=== PATIENT | male | born 2005 | race Caucasian/White ===

== ENCOUNTER 2024-03-22 22:30 | Emergency (ER) | payer BC, SELFPAY ==
[2024-03-22 22:37] VITALS: BP 138/76; BMI 25.1
--- NOTE | 2024-03-22 22:57 | ED.GENMED ---
History of Present Illness
<JANINE Beltran - Last Filed: 03/23/24 00:56>
General
Chief Complaint: Skin Problem
Source: patient and family (mother )
Exam Limitations: none
Time Seen by Provider: 03/22/24 22:56
Nursing documentation reviewed up to this point in time: agreed with
History of Present Illness
History of Present Illness:
19 year old male presents for evaluation of right wrist abscess. Pt reports that he developed a similar abscess on his left shoulder several weeks due to prolonged wrapping of the area following a tattoo. He notes that this abscess was incised and
drained at [facility] on 03/19. Since that time, pt endorses development of a similar painful abscess on his right wrist since 03/19 that has been progressively enlarging. No trauma, bites, stings, or environmental exposures of the area reported. Pt
was seen by his PCP at [facility] on 03/19 where a wound culture of pt's left shoulder was obtained; results pending per pt's mother. Pt currently on Bactrim from his 03/19 incision and drainage. He endorses washing right wrist area with soap and
water, but has not taken any pain medications at home. He denies discharge and bleeding from right wrist abscess, denies N/V, fever, chills, fatigue, joint/muscle pain, decreased ROM, abdominal pain, and urinary symptoms.
Past History
<JANINE Beltran - Last Filed: 03/23/24 00:56>
Past History
ED Past Medical History: Asthma
Review of Systems
<JANINE Beltran - Last Filed: 03/23/24 00:56>
Review of Systems
Allergies reviewed?: Yes
Constitutional: Reports no symptoms
EENT: Reports no symptoms
Respiratory: Reports no symptoms
Cardiac: Reports no symptoms
ABD/GI: Reports no symptoms
: Reports no symptoms
Musculoskeletal: Reports no symptoms
Skin: Reports other (swelling, redness of right wrist )
Neurological: Reports no symptoms
Phy Exam
<JANINE Beltran - Last Filed: 03/23/24 00:56>
General Physical Exam
General Presentation: well appearing
General age: appears stated age
General Skin: warm
General Habitus: normal
General Mental: alert
General Hydration: appears well hydrated
Cardiovascular Exam
Cardiovascular Exam: regular rate/rhythm and no murmur
Pulmonary Exam
Pulmonary Exam: lungs clear and no respiratory distress
Neurological Exam
Neurological Exam: alert and oriented x3
Musculoskeletal Exam
Musculoskeletal Exam: full ROM
Skin Exam
Skin Exam: other (well-circumscribed 3 cm diameter abscess on medial right wrist. Tender, erythematous, warm, mildly fluctuant and pointed. No purulent drainage or bleeding)
Course
<JANINE Beltran - Last Filed: 03/23/24 00:56>
Vital Signs
Initial and Last Documented VS:
Initial Vital Signs
Temp Pulse Resp BP Pulse Ox
98.5 F 60 18 138/76 99
03/22/24 22:37 03/22/24 22:37 03/22/24 22:37 03/22/24 22:37 03/22/24 22:37
Last Documented Vital Signs
Temp Pulse Resp BP Pulse Ox
98.5 F 60 18 138/76 99
03/22/24 22:37 03/22/24 22:37 03/22/24 22:37 03/22/24 22:37 03/22/24 22:37
<Radha Lundberg DO - Last Filed: 03/23/24 00:52>
Vital Signs
Initial and Last Documented VS:
Initial Vital Signs
Temp Pulse Resp BP Pulse Ox
98.5 F 60 18 138/76 99
07/14/24 22:37 03/22/24 22:37 03/22/24 22:37 03/22/24 22:37 03/22/24 22:37
Last Documented Vital Signs
Temp Pulse Resp BP Pulse Ox
98.5 F 60 18 138/76 99
03/22/24 22:37 03/22/24 22:37 03/22/24 22:37 03/22/24 22:37 03/22/24 22:37
Procedures
<JANINE Beltran - Last Filed: 03/23/24 00:56>
Incision/Drainage/Joint Aspiration
Right Medial Wrist:
Anethesia: 1% Lidocaine with Epi and Added Na bicarb to local
Preparation: cleaned with Betadine
Type of procedure: incise and drain
Nature of site: abscess
Description of abscess: greater than 3cm
Loculations broken up: Yes
How much fluid was obtained?: scant amount
Fluid description: serosanguinous
Treatment: bandaid applied
<JANINE Beltran - Last Filed: 03/23/24 00:56>
MDM/Problems Addressed
Differential Diagnosis Includes:
right wrist abscess, MRSA infection, cellulitis
<JANINE Beltran - Last Filed: 03/23/24 00:56>
*Critical Care Note
Total Time (30-74mins, 75-104mins- exclusive of procedures): Not Applicable
<Radha Lundberg DO - Last Filed: 03/23/24 00:52>
*Pulse Oximetry
Patient hypoxic: no
ED Attending Note
<JANINE Beltran - Last Filed: 03/23/24 00:56>
-
Portions of this chart may have been created with voice recognition software.� Occasional wrong word or��sound alike� substitutions may have occurred due to the inherent limitations of voice recognition software.
<Radha Lundberg, DO - Last Filed: 03/23/24 00:52>
ED Attending Note
Patient seen and examined by attending physician: Yes
I performed the substantive portion of visit, reviewed & personally made and approve the management plan that is documented in note by myself or LOUIE.: Yes
I performed a history and physical exam of patient and discussed management with resident, I reviewed resident's note and agree with documented findings and plan of care.: Yes
ED Attending Note:
This is a 19-year-old gentleman who developed a left shoulder skin abscess last week that was incised and drained by general surgery, Dr. Carrion March 19. Bactrim DS was started on that day as well, 10-day course.
Left posterior shoulder abscess has been improving.
He presents tonight with complaints of similar skin abscess medial aspect of his right wrist that developed 2 to 3 days ago. He has not had a fever nor chills.
Prior to onset of shoulder abscess, no history of similar skin abscesses.
He did have wound culture performed at his primary care physician's office earlier last week, culture results have not returned.
He has no significant past medical history. No history of diabetes nor immunocompromise. No history of IV drug use.
No history of others with similar skin abscesses.
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
GENERAL: 19-year-old male appears his stated age, bright and alert, pleasant, appears in no acute distress. Accompanied by his mother.
EYE: anicteric
NECK: Supple, nontender, no adenopathy.
ENT: oral mucosa is moist. No rhinorrhea.
CARDIAC: Regular rate and rhythm. no murmur.
LUNGS: Clear breath sounds bilaterally, no acute respiratory distress, no wheezes/rales/rhonchi
ABDOMEN: Soft, nondistended, without focal tenderness
NEUROLOGICAL: Alert and oriented x3, no focal neuro deficits. Gait is browning and steady.
SKIN: Warm and dry, normal color, no rash. Left posterior shoulder has a healing skin abscess/ulcerated wound that is approximately 1 cm in length, 0.5 cm in depth. Scant serosanguineous drainage. There is no surrounding erythema nor soft tissue
swelling. The posterior medial aspect of the right wrist has a 3 cm skin abscess, well-circumscribed moderately firm with this small central area of pointing and early fluctuance at the central aspect of this abscess. There is no surrounding
erythema. Mild local tenderness to palpation. No lymphangitis.
MUSCULOSKELETAL: No C/C/E. peripheral pulses are full and equal b/l.
PSYCH: Normal and appropriate interaction.
Patient presents with subacute resolving left shoulder skin abscess as well as a newer skin abscess right posteromedial wrist. I do suspect these are MRSA related.
Wrist abscess has early pointing and early fluctuance thus amenable to I&D. There is no evidence of surrounding cellulitis and no evidence of secondary signs of systemic infection.
Incision and drainage performed by PA student under my direct supervision. Small to moderate amount of exudate drained. Loculations broken up. Dry occlusive dressing applied.
Recommend continuing Bactrim, he has an additional weeks worth of antibiotic.
Continue warm compresses to wrist abscess.
Continue Tylenol versus ibuprofen as needed for discomfort.
Patient has follow-up appointment in [address] Carrion.
Discussed importance of proper handwashing. Recommend daily showers with antibacterial soap.
Will add Bactroban ointment topically to abscesses.
If wound culture from PCP office returns positive for MRSA. Recommend he use Bactroban ointment intranasally 3 times daily for 5 days to help to eradicate MRSA colonization.
Discharge Plan
Departure
Patient Disposition: Home (Routine Discharge)
Date of Disposition: 03/23/24
Time of Disposition: 00:49
Patient with high blood pressure during this ER visit?: No
Condition: Good
Discharge Problem:
Abscess of skin of right wrist
Instructions: Skin Abscess
Prescriptions:
New
mupirocin 2 % ointment
1 applic topical BID Qty: 22 0RF
No Action
pantoprazole
Referrals:
Luis Zafar CRNP [Family Provider] -
Lamonte Carrion MD [Active] - Keep scheduled appt
Interventions
Interventions:
*Risk Screen - Suicide Last Done: 03/22/24 22:37
*General Assessment Last Done: 03/22/24 23:40
*Neglect/Abuse Screening Last Done: 03/22/24 22:37
ED- Fall Risk Assessment Last Done: 03/22/24 23:40
*ED COVID-19 Vaccine History Last Done: 03/22/24 23:40
ED-Skin Assessment Last Done: 03/22/24 23:40
Discharge Date and Time
Print Language: YORUBA
== END 2024-03-23 01:00 | disposition home or self-care (01) ==
LOC: EMR 22:30
PROVIDERS: EMERGENCY PHYSICIAN Emergency Medicine; FAMILY PHYSICIAN Nurse Practitioner Family
DX: L02.413 Cutaneous abscess of right upper limb (principal)
CPT/HCPCS: 99282; 10060